=== PATIENT | female | born 1990 | race Caucasian/White ===

== ENCOUNTER → 2016-10-23 | Outpatient (CLI) | payer OTHER ==
[~2016-10-23] MED LIST: IBUP-232 PO; PRENCAP10 PO
== END ==
LOC: CLAB 15:10
PROVIDERS: ATTEND Obstetrics & Gynecology
DX: O36.0120 Maternal care for anti-D [Rh] antibodies, second trimester, not applicable or unspecified (principal); Z67.41 Type O blood, Rh negative; Z3A.26 26 weeks gestation of pregnancy
CPT/HCPCS: 36415; 86850; 86900; 86901; 96372; J2790; 90384

== ENCOUNTER 2016-12-16 18:19 | Observation (INO) | payer OTHER ==
[2016-12-16] MEDS ORDERED: ACETAMINOPHEN 325 MG TAB PO PRN (19:15)
[2016-12-16] MEDS ORDERED: ZOLPIDEM TARTRATE 5 MG TAB PO PRN ×2 (19:15→23:00)
[2016-12-16] MEDS ORDERED: SODIUM CHLORIDE 0.9% FLUSH 10 ML FLUSH IV FLUSH PRN (19:15)
[2016-12-16] MEDS ORDERED: ONDANSETRON ODT 4 MG TAB PO PRN (19:15)
[2016-12-16] MEDS ORDERED: ALUMINUM/MAGNESIUM/SIMETH 30 ML CUP PO PRN (19:15)
[2016-12-16 19:25] VITALS: BP 135/77; PULSE 76; RESP 18
[2016-12-16 19:52] LABS: BACTERIA, URINE OCC /hpf; BLOOD, URINE NEG (NEG); GLUCOSE,URINE NEG (NEG); KETONE, URINE NEG (NEG); MUCUS URINE FEW /lpf (OCC); NITRITE,URINE NEG (NEG); SQUAMOUS EPITHELIAL CELL URINE 13 /hpf (0-5); URINE COLOR LIGHT-YELLOW (YELLW/STRAW)
[2016-12-16 19:53] LABS: COMMENT (UR) CATH-CULTURE IND; CULTURE IF INDICATED CATH CULTURE IND
[2016-12-16 20:23] VITALS: BP 118/57; PULSE 68
[2016-12-16 20:29] LABS: ALKALINE PHOSPHATASE 190 U/L (45-117); ALT (GPT) 19 U/L (10-53); ANION GAP 11 MEQ/L (5-15); AST (GOT) 28 U/L (15-37); BICARBONATE 21.9 MEQ/L (21.0-32.0); BLOOD UREA NITROGEN 9 MG/DL (7-18); CHLORIDE 105 MEQ/L (98-107); GLOMERULAR FILTRATION RATE 82 ML/MIN (>89); POTASSIUM 3.7 MEQ/L (3.5-5.1); SODIUM (NA) 138 MEQ/L (136-145); TOTAL BILIRUBIN ADULT 0.2 MG/DL (0.2-1.0)
[2016-12-16 21:15] VITALS: BP 128/63; PULSE 67
[2016-12-16] MEDS: SODIUM CHLORIDE 0.9% FLUSH 10 ML FLUSH IV FLUSH SCH (22:10)
[2016-12-16 22:21] VITALS: BP 126/63; PULSE 71
[2016-12-16 23:13] VITALS: BP 129/64; PULSE 67
[2016-12-17] VITALS (29 sets, daily range): BP systolic 96–150; BP diastolic 45–78; PULSE 58–102; RESP 16–22; TEMP 97.6–98.6
[2016-12-17 05:59] LABS: HEMATOCRIT 31.6 % (35.0-46.0); MEAN CELL VOLUME 88.6 FL (80.0-100.0); MEAN CORPUSCULAR HEMOGLOBIN 30.3 PG (27.0-34.0); MEAN CORPUSCULAR HGB CONC 34.2 % (32.0-36.0); PLATELET COUNT 210 TH/MM3 (150-450); RED BLOOD COUNT 3.57 MIL/MM3 (4.00-5.30); RED CELL DISTRIBUTION WIDTH 12.9 % (11.6-17.2); REVIEW FLAG FINAL; WHITE BLOOD COUNT 11.4 TH/MM3 (4.0-11.0)
--- NOTE | 2016-12-17 08:33 | PD.OB.ANTE ---
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 She feels well this am. GFM. no Nausea, vomiting, headache, blurred vision or RUQT. No leaking or bleeding or Ucs. 24 hour urine will be down at 6 pm. BPs all reasonable. Strip category 1 cervix unchanged Objective Vital Signs Vital Signs Date Time Temp Pulse Resp B/P Pulse Ox O2 Delivery O2 Flow Rate FiO2 12/17/16 08:00 98.6 68 16 117/72 12/17/16 07:00 102/45 12/17/16 06:18 18 12/17/16 06:18 116/57 12/17/16 06:18 65 116/57 12/17/16 05:23 18 12/17/16 05:15 58 110/53 12/17/16 04:20 18 12/17/16 04:20 64 96/49 12/17/16 04:19 97.9 12/17/16 03:17 18 12/17/16 03:16 61 100/58 12/17/16 02:13 18 12/17/16 02:12 65 101/57 12/17/16 01:08 70 18 111/51 12/17/16 00:08 18 12/17/16 00:06 98.0 12/17/16 00:05 65 98/52 12/16/16 23:13 67 12/16/16 23:13 129/64 12/16/16 22:21 71 126/63 12/16/16 21:15 67 128/63 12/16/16 20:23 68 118/57 12/16/16 19:25 76 135/77 12/16/16 19:25 18 Lab & Micro Results Test 12/16/16 12/16/16 12/16/16 12/17/16 18:30 19:07 19:35 04:56 Urine Random Creatinine 44 MG/DL Urine Random Total Protein 11 MG/DL Urine Protein/Creatinine Ratio 0.25 Urine Color LIGHT-YELLOW Urine Turbidity HAZY Urine pH 7.0 Urine Specific [place] 1.006 Urine Protein NEG mg/dL Urine Glucose (UA) NEG mg/dL Urine Ketones NEG mg/dL Urine Occult Blood NEG Urine Nitrite NEG Urine Bilirubin NEG Urine Urobilinogen LESS THAN 2.0 MG/DL Urine Leukocyte Esterase LARGE Urine RBC 2 /hpf Urine WBC 22 /hpf Urine Squamous Epithelial 13 /hpf Cells Urine Bacteria OCC /hpf Urine Mucus FEW /lpf Microscopic Urinalysis Comment CATH-CULTURE IND Sodium Level 138 MEQ/L Potassium Level 3.7 MEQ/L Chloride Level 105 MEQ/L Carbon Dioxide Level 21.9 MEQ/L Anion Gap 11 MEQ/L Blood Urea Nitrogen 9 MG/DL Creatinine 0.83 MG/DL Estimat Glomerular Filtration 82 ML/MIN Rate Random Glucose 73 MG/DL Uric Acid 5.0 MG/DL Calcium Level 9.2 MG/DL Total Bilirubin 0.2 MG/DL Aspartate Amino Transf 28 U/L (AST/SGOT) Alanine Aminotransferase 19 U/L (ALT/SGPT) Alkaline Phosphatase 190 U/L Total Protein 7.0 GM/DL Albumin 2.8 GM/DL White Blood Count 11.4 TH/MM3 Red Blood Count 3.57 MIL/MM3 Hemoglobin 10.8 GM/DL Hematocrit 31.6 % Mean Corpuscular Volume 88.6 FL Mean Corpuscular Hemoglobin 30.3 PG Mean Corpuscular Hemoglobin 34.2 % Concent Red Cell Distribution Width 12.9 % Platelet Count 210 TH/MM3 Mean Platelet Volume 8.9 FL Test 12/17/16 04:57 Blood Type O NEGATIVE Band and Hold Date/Time Procedure Status Source Growth 12/16/16 19:07 Urine Culture Received Urine Catheterized Urine Pending Physical Exam GENERAL: Well-nourished, well-developed patient. CARDIOVASCULAR: Regular rate and rhythm without murmurs, gallops, or rubs. RESPIRATORY: Breath sounds equal bilaterally. No accessory muscle use. ABDOMEN/GI: Abdomen soft, non-tender. Fundus: [-] GENITOURINARY: External Genitalia: intact and normal in appearance as above pelvis clinically adequate EFW 7 EXTREMITIES: No cyanosis or edema, non-tender, without signs of DVT. normal reflexs no significant edema Assessment and Plan Assessment and Plan reassuring time in observation. if stable when urine collection over send home and push the envelope: make her declare by allowing to return to wrk and if does well deliver at term. If develops progressive symptoms deliver sooner. Machelle Munroe MD Dec 17, 2016 08:33
[2016-12-17] MEDS: SODIUM CHLORIDE 0.9% FLUSH 10 ML FLUSH IV FLUSH SCH (09:00)
--- NOTE | 2016-12-17 13:26 | HHI.HP ---
HPI Chief Complaint headache and elevated bp Date Seen: Dec 16, 2016 Travel History International Travel<30 Days: No Contact w/Intl Traveler<30Days: No Known Affected Area: No History of Present Illness HPI Pt is a G1 with iup at 37w3d admitted for r/o pre-e. PT was seen in office and reports bp elevated at home, was sbp 150 once. She has had mild headaches. REports decreased FM but still 10+movements per 1-2 hours. In the office, BP was 130/78. 1+ protein. She had outpt labs P:C 0.2, UA 4.5, rest of pih labs normal. No documented abn bp in clinic. BPP in office 04/29, nl candace. History Past Medical History Medical History: Denies Significant Hx Obstetric History Obstetric History g1 Past Surgical History Narrative Surgical breast augmentation, wisdom teeth Family History Family History: Negative Social History Alcohol Use: No Tobacco Use: No Substance Abuse: No Allergies-Medications (Allergen,Severity, Reaction): Coded Allergies: No Known Allergies (Unverified , 12/16/16) Review of Systems General / Constitutional: No: Fever, Weight Gain, Chills, Other Eyes: No: Diploplia, Blurred Vision, Visual changes, Pain, Photophobia HENT: No: Headaches, Vertigo, Lightheadedness Cardiovascular: No: Irregular Rhythm, Chest Pain or Discomfort, Palpitations, Tachycardia, Syncope, Varicosities, Edema, Cyanosis Respiratory: No: Cough, Short of Breath, Other Gastrointestinal: No: Nausea, Vomiting, Diarrhea Genitourinary: No: Decreased Urinary Output, Oliguria Musculoskeletal: No: Limited ROM, Weakness, Cramping, Edema, Pain Skin: No Rash, No Itching, No Dryness, No Lumps, No Change in Pigmentation, No Change in Nails, No Alopecia, No Lesions Neurologic: Headache, No: Weakness, Dizziness, Syncope, Focal Abnormalities, Coordination Problem, Slurred Speech, Seizures Psychiatric: No: Depression, Suicidal Ideations, Homicidal Ideation Endocrine: No: Heat Intolerance, Cold Intolerance, Polydipsia, Polyuria, Other Physical Exam Vital Signs Date Time Temp Pulse Resp B/P Pulse Ox O2 Delivery O2 Flow Rate FiO2 12/17/16 12:00 73 16 125/68 12/17/16 12:00 98.2 12/17/16 11:00 81 22 127/70 12/17/16 10:00 84 17 147/64 12/17/16 09:00 78 18 137/72 12/17/16 08:00 98.6 68 16 117/72 12/17/16 07:00 102/45 12/17/16 06:18 18 12/17/16 06:18 116/57 12/17/16 06:18 65 116/57 12/17/16 05:23 18 12/17/16 05:15 58 110/53 12/17/16 04:20 18 12/17/16 04:20 64 96/49 12/17/16 04:19 97.9 12/17/16 03:17 18 12/17/16 03:16 61 100/58 12/17/16 02:13 18 12/17/16 02:12 65 101/57 12/17/16 01:08 70 18 111/51 12/17/16 00:08 18 12/17/16 00:06 98.0 12/17/16 00:05 65 98/52 12/16/16 23:13 67 12/16/16 23:13 129/64 12/16/16 22:21 71 126/63 12/16/16 21:15 67 128/63 12/16/16 20:23 68 118/57 12/16/16 19:25 76 135/77 12/16/16 19:25 18 Narrative GENERAL: Well-nourished, well-developed patient. SKIN: Warm and dry. HEAD: Normocephalic and atraumatic. EYES: No scleral icterus. No injection or drainage. ENT: No nasal drainage noted. Mucous membranes pink. Airway patent. NECK: Supple, trachea midline. No JVD. CARDIOVASCULAR: Regular rate and rhythm without murmurs, gallops, or rubs. RESPIRATORY: Breath sounds equal bilaterally. No accessory muscle use. BREASTS: Bilateral exam showed no masses , no retractions, no nipple discharge. ABDOMEN/GI: Abdomen soft, non-tender, bowel sounds present, no rebound, no guarding Gravid to [-] weeks size Fundal Height: [-] GENITOURINARY: External Genitalia: intact and normal in appearance BUS glands: [-] Cervix: [-] Dilatation: [-] Effacement: [-] Station: [-] Presentation: [-] Membranes: [intact or ruptured] Uterine Contractions: [-] FHT's: Category: [-] Baseline: [-] Reactive: [-] Variability: [-] Decels: [-] EXTREMITIES: No cyanosis or edema. BACK: Nontender without obvious deformity. No CVA tenderness. NEUROLOGICAL: Awake and alert. Motor and sensory grossly within normal limits. Five out of 5 muscle strength in all muscle groups. Normal speech. Data Data Vital Signs Reviewed: Yes Orders Place In Observation (12/16/16 ) Vital Signs (Adult) Q5MX4,Q15MX4,Q30MX2,Q1H (12/16/16 19:07) Activity Bed Rest (12/16/16 19:07) Intake + Output Q1H (12/16/16 19:07) ^ Notify Parameters (12/16/16 19:07) Urinary Catheter Management JULIA.Q8H (12/16/16 19:07) ^ Check Deep Tendon Reflexes Q1H (12/16/16 19:07) Acetaminophen (Tylenol) (12/16/16 19:15) Ondansetron Odt (Zofran Odt) (12/16/16 19:15) Zolpidem (Ambien) (12/16/16 19:15) Cbc No Diff, Includes Plts (12/17/16 06:00) Comprehensive Metabolic Panel (12/16/16 19:07) Uric Acid (12/16/16 19:07) Urinalysis - C+S If Indicated (12/16/16 19:07) Total Protein 24hr Urine (12/16/16 19:07) Creatinine 24 Hr Urine (12/16/16 19:07) Diet Regular Basic (12/17/16 Breakfast) Al-Mag Hy-Si 40-40-4 Mg/Ml Liq (Mag-Al P (12/16/16 19:15) Sodium Chloride 0.9% Flush (Ns Flush) (12/16/16 21:00) Sodium Chloride 0.9% Flush (Ns Flush) (12/16/16 19:15) Specimen To Be Collected PRN (12/16/16 19:07) Protein Creat Ratio, Random Ur (12/16/16 19:12) Urine Culture (12/16/16 19:07) Remove Urinary Catheter .ONCE (12/16/16 22:37) Zolpidem (Ambien) (12/16/16 23:00) Hold Clot (12/17/16 07:00) Abo/Rh Blood Type (12/17/16 04:57) Labs Laboratory Tests Test 12/16/16 12/16/16 12/16/16 12/17/16 18:30 19:07 19:35 04:56 Urine Random Creatinine 44 Urine Random Total Protein 11 Urine Protein/Creatinine Ratio 0.25 Urine Color LIGHT-YELLOW Urine Turbidity HAZY Urine pH 7.0 Urine Specific [place] 1.006 Urine Protein NEG Urine Glucose (UA) NEG Urine Ketones NEG Urine Occult Blood NEG Urine Nitrite NEG Urine Bilirubin NEG Urine Urobilinogen LESS THAN 2.0 Urine Leukocyte Esterase LARGE Urine RBC 2 Urine WBC 22 Urine Squamous Epithelial 13 Cells Urine Bacteria OCC Urine Mucus FEW Microscopic Urinalysis Comment CATH-CULTURE IND Sodium Level 138 Potassium Level 3.7 Chloride Level 105 Carbon Dioxide Level 21.9 Anion Gap 11 Blood Urea Nitrogen 9 Creatinine 0.83 Estimat Glomerular Filtration 82 Rate Random Glucose 73 Uric Acid 5.0 Calcium Level 9.2 Total Bilirubin 0.2 Aspartate Amino Transf 28 (AST/SGOT) Alanine Aminotransferase 19 (ALT/SGPT) Alkaline Phosphatase 190 Total Protein 7.0 Albumin 2.8 White Blood Count 11.4 Red Blood Count 3.57 Hemoglobin 10.8 Hematocrit 31.6 Mean Corpuscular Volume 88.6 Mean Corpuscular Hemoglobin 30.3 Mean Corpuscular Hemoglobin 34.2 Concent Red Cell Distribution Width 12.9 Platelet Count 210 Mean Platelet Volume 8.9 Test 12/17/16 04:57 Blood Type O NEGATIVE Band and Hold Date/Time Procedure Status Source Growth 12/16/16 19:07 Urine Culture Received Urine Catheterized Urine Pending Assessment/Plan Assessment and Plan 26 yo G1 with iup 37w3d by 7 wk u/s being admited for r/o pre-e/ghtn. She reports elevated bp and mild headaches at home. Will admit for 23 hour observation, serial bp, pih labs, 24 hour urine. IF elevated BP or significant proteinuria, will deliver as she is term. BPP in office 04/29; efw 6lb6oz, ceph. Rubella NI RH neg Abn 1 hr gct, nl 3 hour Janine Mcclelland MD Dec 17, 2016 13:26
--- NOTE | 2016-12-17 17:34 | PD.OB.ANTE ---
Subjective Interval History Quiet day with no BP elevations or symptoms desires discharge Can return to work in am and come into office Friday Objective Vital Signs Vital Signs Date Time Temp Pulse Resp B/P Pulse Ox O2 Delivery O2 Flow Rate FiO2 12/17/16 16:17 78 132/78 12/17/16 16:14 150/69 12/17/16 16:00 78 18 132/78 12/17/16 15:40 98.0 12/17/16 15:40 20 12/17/16 15:17 84 139/68 12/17/16 15:00 98.0 84 20 139/68 12/17/16 14:00 97.6 12/17/16 14:00 102 142/70 12/17/16 12:51 80 122/69 12/17/16 12:00 73 16 125/68 12/17/16 12:00 98.2 12/17/16 11:00 81 22 127/70 12/17/16 10:00 84 17 147/64 12/17/16 09:00 78 18 137/72 12/17/16 08:00 98.6 68 16 117/72 12/17/16 07:00 102/45 12/17/16 06:18 18 12/17/16 06:18 116/57 12/17/16 06:18 65 116/57 12/17/16 05:23 18 12/17/16 05:15 58 110/53 12/17/16 04:20 18 12/17/16 04:20 64 96/49 12/17/16 04:19 97.9 12/17/16 03:17 18 12/17/16 03:16 61 100/58 12/17/16 02:13 18 12/17/16 02:12 65 101/57 12/17/16 01:08 70 18 111/51 12/17/16 00:08 18 12/17/16 00:06 98.0 12/17/16 00:05 65 98/52 12/16/16 23:13 67 12/16/16 23:13 129/64 12/16/16 22:21 71 126/63 12/16/16 21:15 67 128/63 12/16/16 20:23 68 118/57 12/16/16 19:25 76 135/77 12/16/16 19:25 18 Lab & Micro Results Test 12/16/16 12/16/16 12/16/16 12/17/16 18:30 19:07 19:35 04:56 Urine Random Creatinine 44 MG/DL Urine Random Total Protein 11 MG/DL Urine Protein/Creatinine Ratio 0.25 Urine Color LIGHT-YELLOW Urine Turbidity HAZY Urine pH 7.0 Urine Specific [place] 1.006 Urine Protein NEG mg/dL Urine Glucose (UA) NEG mg/dL Urine Ketones NEG mg/dL Urine Occult Blood NEG Urine Nitrite NEG Urine Bilirubin NEG Urine Urobilinogen LESS THAN 2.0 MG/DL Urine Leukocyte Esterase LARGE Urine RBC 2 /hpf Urine WBC 22 /hpf Urine Squamous Epithelial 13 /hpf Cells Urine Bacteria OCC /hpf Urine Mucus FEW /lpf Microscopic Urinalysis Comment CATH-CULTURE IND Sodium Level 138 MEQ/L Potassium Level 3.7 MEQ/L Chloride Level 105 MEQ/L Carbon Dioxide Level 21.9 MEQ/L Anion Gap 11 MEQ/L Blood Urea Nitrogen 9 MG/DL Creatinine 0.83 MG/DL Estimat Glomerular Filtration 82 ML/MIN Rate Random Glucose 73 MG/DL Uric Acid 5.0 MG/DL Calcium Level 9.2 MG/DL Total Bilirubin 0.2 MG/DL Aspartate Amino Transf 28 U/L (AST/SGOT) Alanine Aminotransferase 19 U/L (ALT/SGPT) Alkaline Phosphatase 190 U/L Total Protein 7.0 GM/DL Albumin 2.8 GM/DL White Blood Count 11.4 TH/MM3 Red Blood Count 3.57 MIL/MM3 Hemoglobin 10.8 GM/DL Hematocrit 31.6 % Mean Corpuscular Volume 88.6 FL Mean Corpuscular Hemoglobin 30.3 PG Mean Corpuscular Hemoglobin 34.2 % Concent Red Cell Distribution Width 12.9 % Platelet Count 210 TH/MM3 Mean Platelet Volume 8.9 FL Test 12/17/16 04:57 Blood Type O NEGATIVE Band and Hold Date/Time Procedure Status Source Growth 12/16/16 19:07 Urine Culture - Preliminary Resulted Urine Catheterized Urine NO GROWTH IN 24 HOURS. Physical Exam GENERAL: Well-nourished, well-developed patient. CARDIOVASCULAR: Regular rate and rhythm without murmurs, gallops, or rubs. RESPIRATORY: Breath sounds equal bilaterally. No accessory muscle use. ABDOMEN/GI: Abdomen soft, non-tender. Fundus: [-] GENITOURINARY: External Genitalia: intact and normal in appearance Cervix: [-] Dilatation: [-] Effacement: [-] Station: [-] Presentation: [-] Membranes: [-] Uterine Contractions: [-] FHT's: Category: [-] Baseline: [-] Reactive: [-] Variability: [-] Decels: [-] EXTREMITIES: No cyanosis or edema, non-tender, without signs of DVT. Assessment and Plan Assessment and Plan 26 yo G1 with iup 37w3d by 7 wk u/s being admited for r/o pre-e/ghtn. She reports elevated bp and mild headaches at home. Will admit for 23 hour observation, serial bp, pih labs, 24 hour urine. IF elevated BP or significant proteinuria, will deliver as she is term. BPP in office 04/29; efw 6lb6oz, ceph. Rubella NI RH neg Abn 1 hr gct, nl 3 hour Machelle Munroe MD Dec 17, 2016 17:34
--- NOTE | 2016-12-17 17:36 | HHI.DCPOC ---
Discharge Care Plan Report Symptoms to Your Doctor -Temperate above 100.5 degrees -Redness, of incision or excessive or foul smelling drainage -Unusual pain or calf pain -Increased vaginal bleeding -Painful or difficulty urinating -Feelings of extreme sadness or anxiety after 2 weeks Goals to Promote Your Health * To prevent worsening of your condition and complications * To maintain your health at the optimal level Directions to Meet Your Goals Take your medications as prescribed Follow your dietary instruction Follow activity as directed Ensure plenty of rest for recovery Drink fluids for hydration Keep your appointments as scheduled Take your immunizations and boosters as scheduled If your symptoms worsen call your PCP, if no PCP go to Urgent Care Center or Emergency Room Smoking is Dangerous to Your Health. Avoid second hand smoke Call the 24-hour crisis hotline for domestic abuse at Machelle Munroe MD Dec 17, 2016 17:36
[2016-12-17 20:47] LABS: URINE TOTAL PROTEIN TIMED 11.1 MG/DL
[2016-12-17 20:51] LABS: CREAT 24 TIMED 46.7 MG/DL
== END 2016-12-18 00:25 | disposition home or self-care (01) ==
LOC: H2EA 18:19
PROVIDERS: ADMIT Obstetrics & Gynecology; ATTEND Obstetrics & Gynecology
DX: O16.3 Unspecified maternal hypertension, third trimester (principal); Z3A.37 37 weeks gestation of pregnancy; R51 Headache
CPT/HCPCS: 80053; 81001; 82570; 84156; 84157; 84550; 85027; 86900; 86901; 87086; G0378

== ENCOUNTER 2016-12-23 17:14 | Inpatient (IN) | payer OTHER ==
[~2016-12-23] VITALS: Ht 170.2 cm; Wt 81.6 kg
[2016-12-23] MEDS ORDERED: LIDOCAINE HCL 1% 50 ML VIAL INFIL PRN (18:30)
[2016-12-23] MEDS ORDERED: MINERAL OIL 10 ML VIAL TOPICAL PRN (18:30)
[2016-12-23] MEDS ORDERED: OXYTOCIN 30 UNITS-500ML PREMIX 500 ML IV ONE (18:30)
[2016-12-23] MEDS ORDERED: CITRIC ACID-SODIUM CITRATE LIQ 30 ML UDC PO SCH (18:30)
[2016-12-23] MEDS ORDERED: LIDOCAINE HCL 1% 50 ML VIAL I-DERMAL PRN (18:30)
[2016-12-23] MEDS ORDERED: DINOPROSTONE 10 MG VAG INSERT VAGINAL ONE (18:30)
[2016-12-23] MEDS ORDERED: ONDANSETRON HCL 4 MG/2 ML VIAL IV PRN (18:30)
--- NOTE | 2016-12-23 18:31 | HHI.HP ---
History & Physical H&P Chief Complaint ghtn iol Date Seen: Dec 16, 2016 Travel History International Travel<30 Days: No Contact w/Intl Traveler<30Days: No Known Affected Area: No History of Present Illness HPI Pt is a G1 with iup at 38w3d admitted for ghtn iol. BP today 140/90. she continues to have mild headaches. no blury vision or ruq pain. BPP in office 04/29, nl candace. History (Limited) History Past Medical History Medical History: Denies Significant Hx Obstetric History Obstetric History g1 Past Surgical History Narrative Surgical breast augmentation, wisdom teeth extraction Family History Family History: Negative Social History Alcohol Use: No Tobacco Use: No Substance Abuse: No Allergies-Medications Allergies-Medications (Allergen,Severity, Reaction): Coded Allergies: No Known Allergies (Unverified , 12/16/16) ROS Review of Systems General / Constitutional: No: Fever, Weight Gain, Chills, Other Eyes: No: Diploplia, Blurred Vision, Visual changes, Pain, Photophobia HENT: No: Headaches, Vertigo, Lightheadedness Cardiovascular: No: Irregular Rhythm, Chest Pain or Discomfort, Palpitations, Tachycardia, Syncope, Varicosities, Edema, Cyanosis Respiratory: No: Cough, Short of Breath, Other Gastrointestinal: No: Nausea, Vomiting, Diarrhea Genitourinary: No: Decreased Urinary Output, Oliguria Musculoskeletal: No: Limited ROM, Weakness, Cramping, Edema, Pain Skin: No Rash, No Itching, No Dryness, No Lumps, No Change in Pigmentation, No Change in Nails, No Alopecia, No Lesions Neurologic: Headache, No: Weakness, Dizziness, Syncope, Focal Abnormalities, Coordination Problem, Slurred Speech, Seizures Psychiatric: No: Depression, Suicidal Ideations, Homicidal Ideation Endocrine: No: Heat Intolerance, Cold Intolerance, Polydipsia, Polyuria, Other Physical Exam Narrative GENERAL: Well-nourished, well-developed patient. SKIN: Warm and dry. HEAD: Normocephalic and atraumatic. EYES: No scleral icterus. No injection or drainage. ENT: No nasal drainage noted. Mucous membranes pink. Airway patent. NECK: Supple, trachea midline. No JVD. CARDIOVASCULAR: Regular rate and rhythm without murmurs, gallops, or rubs. RESPIRATORY: Breath sounds equal bilaterally. No accessory muscle use. BREASTS: Bilateral exam showed no masses , no retractions, no nipple discharge. ABDOMEN/GI: Abdomen soft, non-tender, bowel sounds present, no rebound, no guarding Gravid to38 weeks size GENITOURINARY: External Genitalia: intact and normal in appearance 10/11/-3 post medium consistency Presentation:[facility] Membranes: [intact Uterine Contractions: FHT's: BPP 8/8 in office EXTREMITIES: No cyanosis or edema. BACK: Nontender without obvious deformity. No CVA tenderness. NEUROLOGICAL: Awake and alert. Motor and sensory grossly within normal limits. Five out of 5 muscle strength in all muscle groups. Normal speech. Data Data Data Vital Signs Reviewed: Yes Orders Labs OB Assessment/Plan Assessment/Plan Assessment and Plan 26 yo G1 with iup 38w3d by 7 wk u/s being admitted for ghtn. Aware iol may be prolonged process. will order pih labs on admission, closely monitor bp. Will start iol with cervidil . PT desires I deliver baby; will make best effort to attend delivery. Desires cord blood donation, will bring kit to hospital. status- efw 7lb, ceph. BPP 8/8 in office. Rubella NI - vaccine pp RH neg - rhogam eval pp Abn 1 hr gct, nl 3 hour Janine Mcclelland MD Dec 23, 2016 18:31
[2016-12-23 18:49] LABS: AUTOMATED NEUTROPHIL # 9.7 TH/MM3 (1.8-7.7); BASOPHIL % 0.4 % (0.0-2.0); BLOOD, URINE MOD (NEG); EOSINOPHIL % 0.3 % (0.0-4.0); GLUCOSE,URINE NEG (NEG); HEMATOCRIT 33.9 % (35.0-46.0); HEMO FLAGS DIFF FINAL; KETONE, URINE NEG (NEG); LYMPH % 18.1 % (9.0-44.0); LYMPHOCYTE # 2.4 TH/MM3 (1.0-4.8); MEAN CELL VOLUME 88.2 FL (80.0-100.0); MEAN CORPUSCULAR HEMOGLOBIN 29.8 PG (27.0-34.0); MEAN CORPUSCULAR HGB CONC 33.8 % (32.0-36.0); MONO % 7.5 % (0.0-8.0); NEUT % 73.7 % (16.0-70.0); NITRITE,URINE NEG (NEG); PH, URINE 6.5 (5.0-8.5); PLATELET COUNT 251 TH/MM3 (150-450); RED BLOOD COUNT 3.84 MIL/MM3 (4.00-5.30); RED CELL DISTRIBUTION WIDTH 12.8 % (11.6-17.2); SQUAMOUS EPITHELIAL CELL URINE 4 /hpf (0-5); URINE COLOR COLORLESS (YELLW/STRAW); WHITE BLOOD COUNT 13.2 TH/MM3 (4.0-11.0)
[2016-12-23 18:50] LABS: COMMENT (UR) CULT NOT INDICATED; CULTURE IF INDICATED CULT NOT INDICATED
[2016-12-23] MEDS ORDERED: LACTATED RINGER'S 1000 ML INJ 1,000 ML IV PRN (19:00)
[2016-12-23] MEDS ORDERED: SODIUM CHLOR 0.9% 1000 ML INJ 1,000 ML OTHER PRN (19:00)
[2016-12-23] MEDS ORDERED: SODIUM CHLOR 0.9% 1000 ML INJ 1,000 ML IV PRN (19:00)
[2016-12-23] MEDS ORDERED: SODIUM CHLORID 0.9% 500 ML INJ 500 ML IV PRN (19:00)
[2016-12-23 19:14] LABS: ANION GAP 11 MEQ/L (5-15); AST (GOT) 17 U/L (15-37); BICARBONATE 23.3 MEQ/L (21.0-32.0); BLOOD UREA NITROGEN 9 MG/DL (7-18); CHLORIDE 104 MEQ/L (98-107); GLOMERULAR FILTRATION RATE 91 ML/MIN (>89); POTASSIUM 3.3 MEQ/L (3.5-5.1); SODIUM (NA) 138 MEQ/L (136-145)
[2016-12-23 19:18] LABS: ALKALINE PHOSPHATASE 205 U/L (45-117); ALT (GPT) 14 U/L (10-53); TOTAL BILIRUBIN ADULT 0.2 MG/DL (0.2-1.0)
[2016-12-23] MEDS: LACTATED RINGER'S 1000 ML INJ 1,000 ML IV SCH ×2 (19:21→20:02)
[2016-12-23 19:24] VITALS: BP 135/77; PULSE 78
[2016-12-23 19:46] VITALS: BP 140/83; PULSE 80; RESP 18
[2016-12-23 21:22] VITALS: RESP 18
[2016-12-23 21:23] VITALS: BP 128/72; PULSE 72
[2016-12-23 22:03] LABS: URIC ACID 5.4 MG/DL (2.6-6.0)
[2016-12-23 22:15] VITALS: BP 136/75; PULSE 78
[2016-12-23 22:30] VITALS: RESP 18; TEMP 98.1
[2016-12-24] VITALS (32 sets, daily range): BP systolic 90–144; BP diastolic 57–86; PULSE 62–109; RESP 16–18; TEMP 97.8–98.8
[2016-12-24] MEDS: LACTATED RINGER'S 1000 ML INJ 1,000 ML IV SCH ×2 (02:00→10:44)
[2016-12-24] MEDS ORDERED: PRENCAP10 PO (06:03)
[2016-12-24] MEDS ORDERED: OXYTOCIN 30 UNITS/NS 500ML PREMIX IV SCH (08:30)
--- NOTE | 2016-12-24 10:20 | PD.LABORPN ---
Subjective Subjective s/p cervidil, on low dose pitocin now Objective Vital Signs Vital Signs Date Time Temp Pulse Resp B/P Pulse Ox O2 Delivery O2 Flow Rate FiO2 12/24/16 09:10 62 122/69 12/24/16 08:34 75 18 123/73 12/24/16 06:29 69 18 128/74 12/24/16 04:15 98.0 18 12/24/16 04:02 71 133/68 Objective Pelvic Exam: 2-3/50/-2, posterior, medium consistency. AROM clear Presentation: ceph Membranes:arom Uterine Contractions:2-5min FHT's: Category: 1 Baseline:140 Reactive:y Variability:mod Decels: [-] Assessment/Plan Assessment and Plan 26 yo G1 with iup 38w4d by 7 wk u/s admitted for iol secondary to ghtn. IOL - s/p cervidil, low dose pitocin this am. s/p arom, will continue to increase pitocin prn Desires cord blood donation status- efw 7lb, ceph. BPP 8/8 in office. Rubella NI - vaccine pp RH neg - rhogam eval pp Abn 1 hr gct, nl 3 hour Janine Mcclelland MD Dec 24, 2016 10:20 Janine Mcclelland MD Dec 24, 2016 10:20
[2016-12-24] MEDS ORDERED: fentaNYL 2MCG-BUPIV 0.125% INJ 100 ML ONE (12:50)
[2016-12-24] MEDS ORDERED: DIPHTH/TETANUS/ACEL PERTUSSIS (BOOSTER) 0.5 ML VIAL/PFS IM ONE (16:00)
[2016-12-24] MEDS ORDERED: MEASLES, MUMPS, RUBELLA VACCINE 0.5 ML VIAL SQ ONE (16:00)
--- NOTE | 2016-12-24 16:32 | PD.OB.DELI ---
Delivery Date: Dec 24, 2016 Anesthesia: Epidural Episiotomy: None Vaginal Delivery: Normal Presentation: Occiput anterior Nuchal Cord: None Delayed cord clamping (45 sec): Yes Infant: Male One Minute : 9 Five Minute : 9 Weight: 3050g Infant Care: Spontaneous crying Placenta: Spontaneous delivery, Other (possible 15% abruption, 300ml retroplacental clot) Laceration: No lacerations Additional Information cord blood and cord segment collected with Janine Norman MD Dec 24, 2016 16:32
--- NOTE | 2016-12-24 16:37 | HHI.DCPOC ---
Discharge Care Plan Diagnosis: (1) PIH ( induced hypertension) (2) (spontaneous vaginal delivery) Your Health Problems Are: Vaginal delivery Report Symptoms to Your Doctor -Temperate above 100.5 degrees -Redness, of incision or excessive or foul smelling drainage -Unusual pain or calf pain -Increased vaginal bleeding -Painful or difficulty urinating -Feelings of extreme sadness or anxiety after 2 weeks Goals to Promote Your Health * To prevent worsening of your condition and complications * To maintain your health at the optimal level Directions to Meet Your Goals Take your medications as prescribed Follow your dietary instruction Follow activity as directed Ensure plenty of rest for recovery Drink fluids for hydration Keep your appointments as scheduled Take your immunizations and boosters as scheduled If your symptoms worsen call your PCP, if no PCP go to Urgent Care Center or Emergency Room Smoking is Dangerous to Your Health. Avoid second hand smoke Call the 24-hour crisis hotline for domestic abuse at Janine Mcclelland MD Dec 24, 2016 16:37
[2016-12-24] MEDS ORDERED: ONDANSETRON ODT 4 MG TAB PO PRN (16:45)
[2016-12-24] MEDS ORDERED: ALUMINUM/MAGNESIUM/SIMETH 30 ML CUP PO PRN (16:45)
[2016-12-24] MEDS ORDERED: ZOLPIDEM TARTRATE 5 MG TAB PO PRN (16:45)
[2016-12-24] MEDS ORDERED: DOCUSATE SODIUM 50 MG/SENNA 8.6 MG TAB PO PRN (16:45)
[2016-12-24] MEDS ORDERED: SODIUM CHLORIDE 0.9% FLUSH 10 ML FLUSH IV FLUSH PRN (16:45)
[2016-12-24] MEDS ORDERED: BENZOCAINE 20% TOPICAL SPRAY 60 ML CAN TOPICAL PRN (16:45)
[2016-12-24] MEDS ORDERED: WITCH HAZEL 50%/GLYCERIN 12.5% 40 PAD JAR TOPICAL PRN (16:45)
[2016-12-24] MEDS ORDERED: ePHEDrine/NS 25 MG/5 ML SYR IV PRN (17:30)
[2016-12-24] MEDS ORDERED: DO NOT ADMINISTER ANTICOAGULANTS PRN (17:30)
[2016-12-24] MEDS ORDERED: fentaNYL 2MCG-BUPIV 0.125% 100 ML EPIDURAL SCH (17:30)
[2016-12-24] MEDS ORDERED: NO SYSTEM NARCOTICS PRN (17:30)
[2016-12-24] MEDS: IBUPROFEN 600 MG TAB PO PRN (20:26)
[2016-12-24] MEDS ORDERED: SODIUM CHLORIDE 0.9% FLUSH 10 ML FLUSH IV FLUSH SCH (21:00)
[2016-12-25] MEDS: IBUPROFEN 600 MG TAB PO PRN ×3 (06:10→18:13)
[2016-12-25] MEDS: ACETAMINOPHEN 325 MG TAB PO PRN ×3 (07:22→21:04)
[2016-12-25 08:00] VITALS: BP 114/67; PULSE 68; RESP 18; TEMP 97.8
[2016-12-25] MEDS ORDERED: PRAMOXINE 1% RECTAL FOAM 15 GM CAN RECTAL PRN (12:00)
--- NOTE | 2016-12-25 12:00 | HHI.OB ---
Subjective Post Day: 1 Remarks PPD#1, Stable, c/o mod. perineal pain Objective Vitals/I&O Vital Signs Date Time Temp Pulse Resp B/P Pulse Ox O2 Delivery O2 Flow Rate FiO2 12/25/16 09:33 16 12/25/16 08:00 97.8 68 18 114/67 12/24/16 20:16 110/59 12/24/16 20:16 98.4 71 16 12/24/16 19:44 18 12/24/16 19:10 18 12/24/16 17:40 18 12/24/16 17:32 92 90/60 12/24/16 17:25 18 12/24/16 17:10 18 12/24/16 16:47 82 133/77 12/24/16 16:46 18 12/24/16 16:28 18 12/24/16 16:27 109 128/86 12/24/16 15:01 71 112/60 12/24/16 14:30 69 116/57 12/24/16 14:01 77 127/75 12/24/16 13:45 97.8 18 12/24/16 13:40 74 12/24/16 13:35 71 12/24/16 13:35 78 132/66 12/24/16 13:31 70 129/69 12/24/16 13:30 78 12/24/16 13:25 76 134/62 12/24/16 13:25 74 12/24/16 13:21 74 136/62 12/24/16 13:20 76 12/24/16 13:15 78 12/24/16 13:15 83 134/80 12/24/16 12:08 69 144/82 12/24/16 12:06 98.2 18 Objective Remarks GENERAL: Well-nourished, well-developed patient. CARDIOVASCULAR: Regular rate and rhythm without murmurs, gallops, or rubs. RESPIRATORY: Breath sounds equal bilaterally. No accessory muscle use. ABDOMEN/GI: Abdomen soft, non-tender. Fundus: Firm, non-tender at umbilicus. GENITOURINARY: Light to moderate bleeding. EXTREMITIES: No cyanosis or edema, non-tender, without signs of DVT. Medications and IVs Current Medications Medications (Trade) Dose Ordered Sig/Nirmala Route Start Time Stop Time Status Last Admin (NS Flush) 2 ml BID IV FLUSH 12/24/16 21:00 (NS Flush) 2 ml UNSCH PRN IV FLUSH 12/24/16 16:45 (Tylenol) 650 mg Q4H PRN PO 12/24/16 16:45 12/25/16 07:22 (Motrin) 600 mg Q6H PRN PO 12/24/16 16:45 12/25/16 06:10 (Americaine 20% Top Spr) 1 spray Q4H PRN TOPICAL 12/24/16 16:45 12/24/16 20:25 (Tucks Pads) 1 applic QID PRN TOPICAL 12/24/16 16:45 12/24/16 20:25 (Heidi-Colace) 2 tab Q12H PRN PO 12/24/16 16:45 (Ambien) 5 mg HS PRN PO 12/24/16 16:45 (Mag-Al Plus Susp Liq) 15 ml Q8H PRN PO 12/24/16 16:45 (Zofran Odt) 4 mg Q6H PRN PO 12/24/16 16:45 Miscellaneous Information No systemic narcotics to be given except... UNSCH PRN .XX 12/24/16 17:30 12/25/16 17:29 Miscellaneous Information DO NOT ADMINISTER ANY ANTICOAGUL... UNSCH PRN .XX 12/24/16 17:30 12/25/16 17:29 (fentaNYL 2MCG-BUPIV 0.125% INJ) 100 ml @ 0 mls/hr TITRATE EPIDURAL 12/24/16 17:30 (ePHEDrine/NS 25 MG/5 ML SYR) 10 mg UNSCH PRN IV 12/24/16 17:30 12/25/16 17:29 Assessment/Plan Assessment and Plan PPD#1, Doing well, add proctofoam prn Discharge Planning Plan for tomorrow, Attending Attestation Seen by Albin Fox MD Dec 25, 2016 11:59
[2016-12-25 19:37] VITALS: BP 121/68; PULSE 79; RESP 16; TEMP 98.2
[2016-12-26] MEDS: IBUPROFEN 600 MG TAB PO PRN ×2 (03:04→10:43)
[2016-12-26] MEDS: ACETAMINOPHEN 325 MG TAB PO PRN (03:04)
[2016-12-26 08:00] VITALS: BP 119/75; PULSE 65; RESP 18; TEMP 97.8
--- NOTE | 2016-12-26 08:28 | HHI.OB ---
Subjective Post Day: 2 Remarks doing well, Objective Vitals/I&O Vital Signs Date Time Temp Pulse Resp B/P Pulse Ox O2 Delivery O2 Flow Rate FiO2 12/26/16 08:00 97.8 65 18 119/75 12/25/16 19:37 98.2 79 16 121/68 12/25/16 18:24 16 12/25/16 14:03 16 Objective Remarks GENERAL: Well-nourished, well-developed patient. CARDIOVASCULAR: Regular rate and rhythm without murmurs, gallops, or rubs. RESPIRATORY: Breath sounds equal bilaterally. No accessory muscle use. ABDOMEN/GI: Abdomen soft, non-tender. Fundus: Firm, non-tender at umbilicus. GENITOURINARY: Light to moderate bleeding. EXTREMITIES: No cyanosis or edema, non-tender, without signs of DVT. Medications and IVs Current Medications Medications (Trade) Dose Ordered Sig/Nirmala Route Start Time Stop Time Status Last Admin (NS Flush) 2 ml BID IV FLUSH 12/24/16 21:00 (NS Flush) 2 ml UNSCH PRN IV FLUSH 12/24/16 16:45 (Tylenol) 650 mg Q4H PRN PO 12/24/16 16:45 12/26/16 03:04 (Motrin) 600 mg Q6H PRN PO 12/24/16 16:45 12/26/16 03:04 (Americaine 20% Top Spr) 1 spray Q4H PRN TOPICAL 12/24/16 16:45 12/24/16 20:25 (Tucks Pads) 1 applic QID PRN TOPICAL 12/24/16 16:45 12/24/16 20:25 (Heidi-Colace) 2 tab Q12H PRN PO 12/24/16 16:45 (Ambien) 5 mg HS PRN PO 12/24/16 16:45 (Mag-Al Plus Susp Liq) 15 ml Q8H PRN PO 12/24/16 16:45 Ondansetron HCl 4 mg 4 mg Q6H PRN PO 12/24/16 16:45 (fentaNYL 2MCG-BUPIV 0.125% INJ) 100 ml @ 0 mls/hr TITRATE EPIDURAL 12/24/16 17:30 (Proctofoam) 1 applic Q6H PRN RECTAL 12/25/16 12:00 12/25/16 18:47 Assessment/Plan Assessment and Plan PPD#2, Doing well, circ done Discharge Planning Plan for today Attending Attestation pt seen by me Amy Barboza MD Dec 26, 2016 08:28
[2016-12-26] MEDS ORDERED: IBUP-232 PO (08:29)
== END 2016-12-26 11:22 | disposition home or self-care (01) | DRG 774 ==
LOC: H2EB 17:14 → H1EA 12-24 20:00
PROVIDERS: ADMIT Obstetrics & Gynecology; ATTEND Obstetrics & Gynecology
PROC: 3E0P7GC Introduction of Other Therapeutic Substance into Female Reproductive, Via Natural or Artificial Opening (ICD-10-PCS; 2016-12-23)
PROC: 10E0XZZ Delivery of Products of Conception, External Approach (ICD-10-PCS; principal; 2016-12-24)
PROC: 10907ZC Drainage of Amniotic Fluid, Therapeutic from Products of Conception, Via Natural or Artificial Opening (ICD-10-PCS; 2016-12-24)
PROC: 3E0R3CZ (ICD-10-PCS; 2016-12-24)
PROC: 00HU33Z Insertion of Infusion Device into Spinal Canal, Percutaneous Approach (ICD-10-PCS; 2016-12-24)
DX: O13.4 Gestational [pregnancy-induced] hypertension without significant proteinuria, complicating childbirth (principal); Z37.0 Single live birth; O45.93 Premature separation of placenta, unspecified, third trimester; Z3A.38 38 weeks gestation of pregnancy
CPT/HCPCS: 59025; 80053; 81001; 84550; 85025; 85461; 86850; 86900; 86901; 88307; 90384; 90707; J2590; J2790; J7120